=== PATIENT | female | born 1945 | race Caucasian/White ===

== ENCOUNTER 2022-05-04 07:18 | Day surgery (SDC) | payer MEDICARE ==
[~2022-05-04] VITALS: Ht 157.5 cm; Wt 62.1 kg
[~2022-05-04 07:18] MED LIST: ACYC-163 PO; AMLO-489 PO; ATOR40TA52 PO; BIOF500T4 PO; CHOL100047 PO; ESTR10TA5 VA; METO25TA93 PO; TIMO0.5S66 RIGHTEYE; [UNRECOGNIZED DRUG - CODE] PO
[2022-05-04] MEDS ORDERED: HEPARIN SODIUM (PORCINE) 5000 UNITS/ML 1ML VIAL ONE (08:40)
[2022-05-04] MEDS ORDERED: fentaNYL CITRATE 100 MCG/2 ML VL ONE (08:40)
[2022-05-04] MEDS ORDERED: VERAPAMIL 2.5MG/ML INJ 2ML VIAL IV ONE (08:40)
[2022-05-04] MEDS ORDERED: ANGIOMAX 250 MG VIAL IV ONE (08:40)
[2022-05-04] MEDS ORDERED: IODIXANOL 320MG/ML 100ML BTL IV ONE (08:41)
[2022-05-04] MEDS ORDERED: SODIUM CHL 0.9% 0 ML ONE (08:41)
[2022-05-04] MEDS ORDERED: MIDAZOLAM HCL 2MG/2ML 2ml VIAL (1mg/ml) ONE (08:41)
[2022-05-04] MEDS ORDERED: LIDOCAINE 2%HCL (LOCAL ANESTH.) INJ 10ml MDV ONE (08:51)
== END 2022-05-04 12:45 | disposition home or self-care (01) ==
LOC: CATH 07:18
PROVIDERS: ATTEND Internal Medicine Cardiovascular Disease
DX: R94.39 Abnormal result of other cardiovascular function study (principal); I25.10 Atherosclerotic heart disease of native coronary artery without angina pectoris; Z20.822 Contact with and (suspected) exposure to COVID-19
CPT/HCPCS: 93458; C1887; C1894; J1644; J2001; J2250; J3010; J7030; Q9967; U0003; 99152; 99153